=== PATIENT | female | born 1985 | race Caucasian/White ===

== ENCOUNTER 2022-12-02 09:06 | Outpatient (CLI) | payer BC, SELFPAY ==
[2022-12-02 10:49] LABS: Hematocrit 40.2 % (37.0-47.0); Hemoglobin 13.3 g/dL (12.0-15.0)
== END 2022-12-02 09:07 | disposition home or self-care (01) ==
PROVIDERS: PCP Pediatrics; Visit Provider Obstetrics & Gynecology
DX: R10.2 Pelvic and perineal pain (principal)
CPT/HCPCS: 36415; 85014; 85018; 86850; 86900; 86901

== ENCOUNTER 2022-12-06 00:05 | Day surgery (SDC) | payer BC, SELFPAY ==
[2022-11-27 11:34] VITALS: BMI 21.6
--- NOTE | 2022-11-27 11:46 | PC.NURSE ---
Report to the Outpatient Waiting Room, entrance under the green pavilion located off [facility], at time 10:30 on date 12/06/22. Planned Procedure Time: 12:30. Time changes happen often and if your time is changed the preop area will call you the afternoon before. - You and your visitor will be asked to self-screen and do not enter if you have any COVID symptoms. - Only one visitor is requested with a max of two and NO children visitors are allowed at this time. - The patient visitor may be requested to leave or wait in car when not with patient due to distancing restrictions. - A mask is optional within the hospital. Patients may have clear liquids (water, carbonated beverages, clear teas, apple juice) until 3 hours prior to surgery (9:30) with a maximum of 20 ounces. - No food from midnight until time of surgery Take the following medications with a SIP of water the morning of surgery: PREDNISONE Medications to discontinue per physician: N/A Date to take last dose: N/A Please no make-up, nail czech, hairspray, perfume, deodorant, or body powder the day of surgery. No jewelry (including any body piercings) or valuables the day of surgery, leave them at home. Please take a shower or bath the night before, or the morning of, surgery with an antibacterial soap. Wear comfortable, loose fitting clothing. - Jewelry must be removed prior to entering the operating room. Rings and piercings that are not removed may be cut off. - The hospital will not accept responsibility for valuables. - Please leave all valuables, including medications, at home the day of surgery. If you are going home after surgery, a licensed distribution driver must drive you home. - NO public transportation without another adult if you receive anesthesia. - We recommend that an adult stay with you for 24 hours following discharge. - We also recommend that you do not drive, make important decision, drink alcoholic beverages, or take any drugs that were not prescribed by your health care provider for at least 24 hours after your discharge time. Follow any additional instructions given to you from your surgeon. If you or anyone in your household have experienced Covid symptoms in the past week, please notify your surgeon or the nurse liaison at the phone number below for possible testing. Telephone instructions given to PT - NEERAJ FORTE and asked if any additional questions and then verbalized understanding. Patient advised to call surgeon office or pre surgery nurse liaison [phone] if any additional questions.
--- NOTE | 2022-12-03 12:39 | PM.IMHP ---
H&P: HPI History of Present Illness Date/Time: 12/03/22 12:39 Chief Complaint: Pelvic pain and irregular bleeding Narrative: 37 year female complaining of pain discomfort dyspareunia and irregular excessive heavy bleeding. She had 3 vaginal deliveries an ectopic in the past with removal of the right ovary and tube. She underwent ultrasound which was unremarkable. On the left there is a complex cystic looking area measuring 2.7x2.4x2.1cm. Risks and benefits of this procedure reviewed including not exclusive of , aspiration pneumonia, bleeding, transfusion, perforation injury to bowel, bladder, ureters, or other internal organs with the new for open laparotomy. She received the ACOG handout entitled laparoscopy as well as hysteroscopy and dilatation curettage respectively. She had all questions answered and asked to proceed PMF Social History Social History Smoking status: Never smoker Alcohol intake: current Drinks per week: 2 Substance use: never Substance use type: does not use Living arrangements: with family Spiritual care concerns: No Meds Home Medications and Allergies Home Medications Medication Instructions Recorded Confirmed Type multivitamin 1 tablet PO DAILY 11/27/22 11/27/22 History prednisone 10 mg tablet 10 mg PO DIRECTED 11/27/22 11/27/22 History Allergies Allergy/AdvReac Type Severity Reaction Status Date / Time No Known Allergies Allergy Verified 11/27/22 11:32 Exam Const: General: cooperative, healthy appearing and comfortable Nutritional Appearance: average body habitus Orientation/consciousness: oriented to person, oriented to place and oriented to time HENMT: Head: normal to inspection Resp: Effort & Inspection: normal respiratory effort Cardio: Rate: regular rate Rhythm: regular rhythm Heart sounds: S1 normal heart sound present and S2 normal heart sound present GI: Inspection: normal to inspection Auscultation: normal bowel sounds : External Female Exam: normal external appearance Speculum Exam - Vagina: normal appearance of the vagina Speculum Exam - Cervix: normal appearance of the cervix Bimanual exam- vagina & uterus: non-tender Bimanual Exam- Adnexa, other: tender bilaterally Assessment and Plan Assessment and plan (1) Pelvic pain: Code(s): R10.2 - Pelvic and perineal pain Status: Acute (2) Vaginal bleeding: Code(s): N93.9 - Abnormal uterine and vaginal bleeding, unspecified Status: Acute Plan Laparoscopy with hysteroscopy dilatation and curettage
[2022-12-06] VITALS (9 sets, daily range): BP systolic 88–118; BP diastolic 63–79; PULSE 67–89; RESP 12–17; TEMP 36.4–37.6; O2SAT 93–100
--- NOTE | 2022-12-06 06:24 | WPDHPUPDATE1 ---
History and Physical Update Update Date/Time: 12/06/22 06:24 History and Physical has been reviewed, including an updated exam of the patient. There are NO changes in the patient's condition. Risks, benefits, and alternatives have been discussed and questions answered. Patient agrees to proceed with procedure.
[2022-12-06] MEDS: LACTATED RINGERS 1,000 ML 30 ML IV CONT ×2 (12:00→14:11)
[2022-12-06] MEDS: ACETAMINOPHEN 500 MG TABLET 1000 MG PO (12:02)
[2022-12-06] MEDS: KETOROLAC 15 MG/ML VIAL (*BKC) IV PUSH (12:28)
[2022-12-06] MEDS: SCOPOLAMINE 1.5 MG PATCH TRANSDERM (12:58)
--- NOTE | 2022-12-06 13:13 | P.PNAN_ITS ---
Anes - Initial Pre Proc Eval Procedure: Operation Date: 12/06/22 13:15 Proposed Procedures p Laparoscopy, Hysteroscopy Dilation and Curettage - Ayden Mcdowell MD Date/Time: 12/06/22 13:13 Surgeon: Ayden Mcdowell MD Pre Op Diagnosis: pelvic pain, irregular bleeding, endometriosis Patient Data Age: 37 Gender: F Height: 1.65 m Weight: 58.8 kg Last Vital Signs Temp 37.6 C 12/06/22 12:40 Pulse 87 12/06/22 12:40 Resp 16 12/06/22 12:40 BP 118/70 12/06/22 12:40 Pulse Ox 100 12/06/22 12:40 O2 Del Method Room Air 12/06/22 12:40 Allergies Allergy/AdvReac Type Severity Reaction Status Date / Time No Known Allergies Allergy Verified 12/06/22 12:37 Home Medications Medication Instructions Recorded Confirmed Type multivitamin 1 tablet PO DAILY 11/27/22 12/06/22 History prednisone 10 mg tablet 10 mg PO DIRECTED 11/27/22 12/06/22 History hydrocodone 5 mg-acetaminophen 325 1 tablet PO Q4H PRN pain #20 tabs 12/06/22 Rx mg tablet Patient hx anesthesia problems: none Family hx anesthesia problems: none Results Review: All pre-operative results and documents have been reviewed as part of the pre- operative evaluation. [facility] Social History Social History Smoking status: Never smoker Alcohol intake: current Drinks per week: 2 Substance use: never Substance use type: does not use Living arrangements: with family Spiritual care concerns: No Anes - Eval Final PreProcedure Day of Procedure 12/06/22 13:13 Patient weight: normal Heart: regular rate and rhythm Lungs: clear to auscultation Airway: Mallampati scale class II Neurological: alert and oriented Last oral intake: >/= 8 hours ASA classification: II Emergent: no Anesthetic plan: proceed Anesthesia type and monitoring: general ETT and standard monitoring Results Review: All pre-operative results and documents have been reviewed as part of the pre- operative evaluation. Informed Consent: The patient's anesthetic plan and its attendant risks and benefits were discussed with the patient/family/POA. Questions were solicited and answers provided to the satisfaction of the patient/family/POA.
[2022-12-06] MEDS: KETOROLAC 30 MG/ML VIAL (*BKC) IV PUSH (13:51)
--- NOTE | 2022-12-06 14:01 | P.OP_ITS ---
Procedure Note - Detailed Date of Procedure 12/06/22 Pre-op Diagnosis pelvic pain, irregular bleeding, endometriosis Post-op Diagnosis Same Procedure Performed Hysteroscopy / dilatation curettage /laparoscopic destruction of endometriosis Surgeon Ayden Mcdowell MD Anesthesia General Indications this is a 37-year-old female with a known history of endometriosis with irregular bleeding and pain Findings left tube appeared to be surgically absent. Left ovary appeared within normal limit with 2 small powder burn areas of endometriosis. The right ovary and tube looked fine there was powder burn endometriosis along the left uterosacral ligament. There was a normal-appearing appendix normal-appearing gallbladder and liver edge Description of Procedure patient was prepped draped in the normal sterile fashion placed in dorsal lithotomy position. Under excellent general trach anesthesia weighted speculum placed in posterior fornix vagina. Anterior lip of the cervix grasped with single-tooth tenaculum. Mena's cannula was inserted attached to the single- tooth to be used later for uterine manipulation. After emptying the bladder clear urine the weighted speculum was removed the gloves were changed. An infraumbilical incision made the Veress needle passed in the abdomen. Abdomen filled with CO2 gas. Five trocar advanced injury seen. Patient placed in Trendelenburg and a suprapubic incision made. Five trocar advanced under visualization assuringno injury. As but 20cc serosanguineous fluid in the cul-de-sac and this was suction and removed. Multiple areas of endometriosis were seen along the left uterosacral ligament and these were cauterized destroying the endometrial implants. Irrigation undertaken until clear the left ovary had 2 powder burn endometrial implants and these were destroyed with 35mm of monopolar cautery. The remainder the pelvis was clean and was noted. The lower site removed the gas removed from the abdomen. The upper site removed incisions closed with 4 Monocryl glue. Attention Attention was turned to the hysteroscopic portion. The uterus sounded 8cm. Serial dilatation with fragmented dilators performed followed passes 5mm visualizing hysteroscope using saline as visualizing medium. Thick irregular endometrial tissue was seen each fallopian tube os could be seen but no definitive abnormalities were seen the uterus was then scraped over the entire 360? until a good grating sound was heard. Instruments withdrawn the patient went recovery in satisfactory condition. All sponge, needle, instrument counts were correct. There were no immediate complications Estimated Blood Loss 5 Drains No Packing No Pathology Yes Complications No immediate complications Condition Stable Disposition PACU
[2022-12-06] MEDS: oxyCODONE HCL (*CRX) 5 MG TAB IR PO (15:38)
== END 2022-12-06 16:29 | disposition home or self-care (01) ==
PROVIDERS: PCP Pediatrics; Visit Provider Obstetrics & Gynecology
PROC: 0UDB8ZZ Extraction of Endometrium, Via Natural or Artificial Opening Endoscopic (ICD-10-PCS; CPT 58558; principal; 2022-12-06 13:15)
DX: N80.102 Endometriosis of left ovary, unspecified depth (principal); N80.3C2 Endometriosis of the left uterosacral ligament, unspecified depth; R10.2 Pelvic and perineal pain; N80.9 Endometriosis, unspecified; F10.90 Alcohol use, unspecified, uncomplicated; Z79.52 Long term (current) use of systemic steroids; Z79.899 Other long term (current) drug therapy
CPT/HCPCS: 58662; 58558; 88305; A9270; J0330; J1100; J1885; J2250; J2405; J2704; J3010; J7120

== ENCOUNTER 2025-05-06 15:33 | Outpatient (CLI) | payer BC, SELFPAY ==
--- NOTE | ~2025-05-06 | MM_ITS ---
EXAMINATION: MM screening avi BI w naila HISTORY: Screening mammogram TECHNIQUE: Craniocaudal and mediolateral oblique 3-D tomosynthesis images were obtained and synthetic 2-D images were generated. CAD analysis was submitted and interpreted. COMPARISON: No prior mammogram is available for comparison at this institution. BREAST PARENCHYMAL COMPOSITION:Dense: The breasts are extremely dense, which lowers the sensitivity o f mammography. FINDINGS: No suspicious mass, calcification, or architectural distortion are identified in either marium ast to suggest malignancy. There has been no suspicious interval change. IMPRESSION: No mammographic evidence of malignancy. Recommend routine screening mammography in one year. BI-RADS Category 1: Negative Reviewed, dictated and finalized at location .
== END 2025-05-06 15:34 | disposition home or self-care (01) ==
LOC: ANHIMG 15:34
PROVIDERS: PCP Pediatrics; Visit Provider Obstetrics & Gynecology
DX: Z12.31 Encounter for screening mammogram for malignant neoplasm of breast (principal)
CPT/HCPCS: 77063; 77067